=== PATIENT | male | born 1955 | race Caucasian/White ===

== ENCOUNTER 2017-01-17 10:32 | Inpatient (IN) | payer BC, OTHER ==
[~2017-01-17] VITALS: Ht 177.8 cm; Wt 82.8 kg
[2017-01-17] MEDS ORDERED: ASPI325T28 PO (10:49)
[2017-01-17] MEDS ORDERED: CLAR10CA3 PO (10:49)
[2017-01-17 11:45] LABS: INR 1.2
[2017-01-17 12:12] LABS: ALKALINE PHOSPHATASE 69 U/L (45-117); ALT/SGPT 56 U/L (12-78); AMYLASE 36 U/L (25-115); AST/SGOT 30 U/L (15-37); BILIRUBIN,DIRECT 0.5 MG/DL (0.0-0.2); BILIRUBIN,TOTAL 2.2 MG/DL (0.2-1.0); BLOOD UREA NITROGEN 12 MG/DL (7-18); CALCIUM LEVEL 8.8 MG/DL (8.8-10.2); CARBON DIOXIDE LEVEL 26 MEQ/L (21-32); CHLORIDE LEVEL 107 MEQ/L (98-107); CREATININE FOR GFR 0.99 MG/DL (0.70-1.30); GLUCOSE, FASTING 98 MG/DL (80-110); POTASSIUM SERUM 4.5 MEQ/L (3.5-5.1); TOTAL PROTEIN 7.4 GM/DL (6.4-8.2)
--- NOTE | 2017-01-17 12:23 | REP ---
CHEST, SINGLE VIEW: There is no evidence of acute infiltrate. No pleural effusion is seen. The heart is normal in size. The mediastinal silhouette is unremarkable. The visualized osseous structures are intact. IMPRESSION: No acute pulmonary disease. Signed by Mac Johnson MD 01/17/2017 05:01 P
[2017-01-17 12:46] LABS: MEAN CORPUSCULAR HEMOGLOBIN 40.6 pg (27.0-33.0); MEAN CORPUSCULAR HGB CONC 34.5 g/dl (32.0-36.5); MEAN CORPUSCULAR VOLUME 117.7 fl (80.0-96.0); PLATELET COUNT, AUTOMATED 199 k/mm3 (150-450); RED CELL DISTRIBUTION WIDTH 23.7 % (11.5-14.5); WHITE BLOOD COUNT 4.4 K/mm3 (4.0-10.0)
[2017-01-17 12:49] LABS: EOSINOPHILS 1 % (0-5); NUCLEATED RED BLOOD CELL 2 % (0-0)
[2017-01-17 12:50] LABS: ANISOCYTOSIS 3+
[2017-01-17 13:12] LABS: ANION GAP 8 MEQ/L (8-16); SODIUM LEVEL 141 MEQ/L (136-145)
[2017-01-17 13:13] LABS: ALBUMIN 4.3 GM/DL (3.2-5.2); ALBUMIN/GLOBULIN RATIO 1.39 (1.00-1.93)
[2017-01-17] MEDS ORDERED: GOLYTELY SOLN 4000 ML BTL PO ONE (14:00)
--- NOTE | 2017-01-17 14:09 | HPEPDOC ---
Medical History and Physical Date of Admission Jan 17, 2017 at 13:18 History and Physical ATTENDING: Dr. Carrillo PCP: Dr Ingram. [facility] CC: Referred to ED for symptomatic anemia HPI: 61yoM with a past medical history significant for chest discomfort who was seen at PCP office 01/12/17 for further evaluation. The pt states he had been having chest heaviness with exertion and POWELL. He was referred to [facility] in [place] for a stress study which was scheduled 01/18/17. He states that he had labs reviewed as per PCP (Hgb 7.9) and was referred to [facility] ED for further evaluation and transfusion. Denies any fevers, chills, weakness, fatigue, TOMPKINS, cough, palpitations, abdominal pain, N/V/D or changes in bowel or bladder habits. Denies melena, hematochezia. Had been having some "heartburn" and was using TUMS however Pt states has not noticed recently and he felt it was better. Upon presentation to the hospital the patient was found to have symptomatic anemia, thus the hospitalist team was consulted. PMHx: borderline HTN allergic rhinitis tobacco use Lung Nodule. CT chest 01/12/17 Maybeury benign calcified nodule RLL. PSHX: back surgery B/L CTR trigger finger release nasal surgery SOCHX: Resides in: [facility] Marital Status: Kids: 2 Employment: maintenance Tobacco use: 6 perday ETOH: 2-5 per nt Illicit Drugs: Denies Recent travel: recently went to [place] Advanced directives: none FAMHX: Mother: Pneumonia, heart disease, DM Father: spinal tumor Siblings: 1 brother stomach Ca Children: Alive, Crohn's disease Unexpected deaths due to medical reasons: None. ROS: As noted in HPI, otherwise 11pt ROS of systems reviewed and unremarkable. PE: GEN: 61yoM, appears stated age. Well-nourished, well developed. No acute distress. Alert and oriented x 3. Pleasant, interactive. HEENT: Normocephalic, atraumatic. Pupils are equal, round, and reactive to light. Extraocular movements are intact. No nystagmus appreciated. Sclera are nonicteric. Conjunctiva without injection. Nose midline. Nasal turbinates without bogginess. EACs both patent BL. No facial asymmetry. Moist mucous membranes. Dentition fair. Pharynx pink and moist. Neck supple, trachea midline. No lymphadenopathy or thyromegaly appreciated. CHEST: Regular rate and rhythm, +S1, +S2 LUNGS: Clear to auscultation bilaterally. No wheezes, rales, or rhonchi. Breathing appears symmetric and easy. Patient is speaking in full sentences. No accessory muscle use. ABD: Round, soft, non-tender, non-distended. +Bowel sounds throughout. No rebound or guarding. No costovertebral angle tenderness. EXT: Pulses 2+ bilaterally dorsalis pedis and radial. No lower extremity edema appreciated. SKIN: Pale appearing, dry, warm. Capillary refill <2sec. No rashes. NEURO: Alert and oriented x 3. Cranial nerves III-XII are intact. No focal deficits appreciated. CXR: No acute pulmonary disease EKG: SR 84 bpm, minimal ST depression Stool OB neg in ED. A&P: 61yoM with a past medical history significant for chest discomfort who was seen at PCP office 01/12/17 for further evaluation. The pt states he had been having chest heaviness with exertion and POWELL. He was referred to [facility] for a stress study which was scheduled 01/18/17. He states that he had labs reviewed as per PCP (Hgb 7.9) and was referred to [facility] ED for further evaluation and transfusion. 1. The patient will be admitted to PCU for at least [address] Carrillo's service. Pt is discussed with Dr Webster. 2. Symptomatic anemia. Consent on chart for blood products. Pt with orders to begin PRBC x 1 unit in ED. Q6 CBC. Monitor need for additional PRBC. Dr Fox consulted for UGI bleed. Scoping planned for tomorrow. IV Protonix Q12, Carafate Q6. Golytely prep ordered. 3. Chest discomfort. Pt states no discomfort currently. CIP/Trop x 3. PCU/TM. ASA on hold. 4. Allergic rhinitis. Loratadine as needed. 5. Tobacco use. Pt declines Nicoderm at this time. 6. H/O elevated BP. Pt does not take BP meds at home. Monitor. 149/73 in ED. DVT prophylaxis. SCD/TEDS The patient is a Full code Attending Note: I have independently examined this patient and all aspects of the exam and treatment decisions have been discussed. A member of the hospitalist staff will continue to follow this patient through discharge. Vital Signs Vital Signs Date Time Temp Pulse Resp B/P (MAP) Pulse Ox O2 Delivery O2 Flow Rate FiO2 01/17/17 12:17 80 99 01/17/17 12:14 149/73 (98) 01/17/17 10:34 97.9 16 Room Air Laboratory Data Labs 24H Laboratory Tests 2 01/17/17 11:15: Neutrophils 69, Lymphocytes (Manual) 25, Monocytes (Manual) 5, Eosinophils ( Manual) 1, Nucleated Red Blood Cells 2H, Platelet Estimate NORMAL, Anisocytosis 3+, Macrocytosis 3+, Prothrombin Time 15.3H, Prothromb Time International Ratio 1.20, Activated Partial Thromboplast Time 33.0, Anion Gap 8, Calcium Level 8.8, Aspartate Amino Transf (AST/SGOT) 30, Alanine Aminotransferase (ALT/SGPT) 56, Alkaline Phosphatase 69, Total Bilirubin 2.2H, Direct Bilirubin 0.5H, Total Creatine Kinase 43, Creatine Kinase MB 1.0, Creatine Kinase MB Relative Index 2.32, Troponin I < 0.02, Total Protein 7.4, Albumin 4.3, Albumin/Globulin Ratio 1.39, Amylase Level 36, Lipase 156 CBC/BMP Laboratory Tests 01/17/17 11:15 Red Blood Count 1.99 L, Mean Corpuscular Volume 117.7 H, Mean Corpuscular Hemoglobin 40.6 H, Mean Corpuscular Hemoglobin Concent 34.5, Red Cell Distribution Width 23.7 H Home Medications Scheduled Aspirin (Aspirin) 325 Mg Tab, 325 MG PO DAILY Scheduled PRN Loratadine (Claritin) 10 Mg Cap, 10 MG PO DAILY PRN for ALLERGIES Allergies Coded Allergies: No Known Drug Allergy (Verified Allergy, Unknown, 01/17/17) Debra Noriega Jan 17, 2017 14:09 MARYJO WEBSTER DO Jan 18, 2017 16:38
[2017-01-17] MEDS: PANTOPRAZOLE 40MG INJ (PROTONIX) (C9113) IV SCH (15:27)
[2017-01-17] MEDS: SUCRALFATE 1 GM TAB PO SCH ×2 (15:28→18:25)
[2017-01-17] MEDS: NICOTINE 14 MG/24 HR TRANSDERMAL TD SCH (16:51)
--- NOTE | 2017-01-17 17:56 | ECGEPIP ---
Stationary ECG Study [facility] - ED Test Date: 2017-01-17 Pat Name: LENA COFFEY Department: Room: - Gender: M Box Icer: raman : 1955 Requested By: Jarrell Gorman Order Number: [id number] Reading MD: Jarrell Gorman Measurements Intervals [place] Rate: 84 P: 69 SC: 152 QRS: 53 QRSD: 91 T: 57 QT: 376 QTc: 445 Interpretive Statements SINUS RHYTHM MINIMAL ST DEPRESSION 03/12/15 - RATE INCREASED NONSPECIFIC ST T WAVE CHANGES Electronically Signed On 01-17-2017 17:55:48 EDT by Jarrell Gorman
[2017-01-17 21:40] VITALS: BP 140/89
[2017-01-18 00:10] VITALS: BP 128/74
[2017-01-18] MEDS ORDERED: diphenhydrAMINE 25 MG CAP PO ONE (00:30)
[2017-01-18] MEDS: PANTOPRAZOLE 40MG INJ (PROTONIX) (C9113) IV SCH ×2 (01:02→13:50)
[2017-01-18] MEDS: SUCRALFATE 1 GM TAB PO SCH ×5 (01:02→23:51)
--- NOTE | 2017-01-18 04:40 | CR.PDOC ---
General Surgery Consultation Date of Consultation 01/18/17 History and Physical CONSULT REPORT FOR: Tae DO Kunal REASON FOR CONSULTATION: Anemia HISTORY OF PRESENT ILLNESS: Patient 61-year-old male who was seen by his primary care doctor complaining of intermittent chest pains was found to have severe anemia. Laboratories and subsequently sent to the emergency room and admitted to the hospital for blood transfusion and workup of his anemia. I'm being asked to see the patient to consider performing colonoscopy and upper GI endoscopy as workup of his anemia. Patient reports some intermittent low sternal and epigastric pain, some mild heartburn symptoms he has been taking Tums with adequate response off the heartburn symptoms. He drinks a few beers nightly. He denies taking NSAIDs regularly. He denies any significant ongoing weight loss. He denies noticing any melena or bloody stools. He denies any pain with defecation. He has had previous colonoscopy when he turned 50 was reported to be normal. He reports some mid sternal pain and effort. He denies any shortness of breath. PAST MEDICAL HISTORY: 1. Reviewed and recorded separately in HPI. PAST SURGICAL HISTORY: INCLUDES: 1. Reviewed and recorded separately in HPI PREVIOUS ANESTHESIA REACTIONS: None reported ALLERGIES: Please see below. FAMILY HISTORY: Reports brother with stomach cancer. A child with Crohn's disease. Denies family history for colorectal malignancy. HOME MEDICATIONS: Please see below. SOCIAL HISTORY Tobacco use: 6 perday ETOH: 2-5 per nt REVIEW OF SYSTEMS: GENERAL: Denies chills, denies weight gain, denies fever. HEENT: Denies blurred vision and double vision. Denies ear symptoms. Denies hoarseness. NECK: Denies any neck pain]. CARDIOVASCULAR: Reports midsternal chest pain and effort. MUSCULOSKELETAL: Denies arthralgias, back pain and thrombophlebitis. SKIN: Denies rash. NEUROLOGIC: Denies headache, stroke and transient ischemic attack. PSYCHIATRIC: Denies anxiety and depression. ENDOCRINE: Denies thyroid disease. HEMATOLOGY/ONCOLOGY: Not on any anticoagulant. HEART: Reports chest pain. PULMONARY: Denies chronic cough, dyspnea and wheezing had an incidental finding of right lower lung nodule. GASTROINTESTINAL: See HPI. GENITOURINARY: Denies dysuria, frequency, hematuria and nocturia. ENDOCRINE: Denies polydipsia, polyphagia, polyuria, heat or cold intolerance. INFECTIOUS: Denies any recent upper respiratory tract infection, UTI, need for use of antibiotics. NUTRITION: Reports good appetite. PHYSICAL EXAMINATION: VITALS SIGNS: Please see below. GENERAL APPEARANCE:Patient seen, pacing the room. Comfortable, in no acute distress. SKIN: Warm and moist. HEENT: Normocephalic, atraumatic. Mildly pale palpebral conjunctiva, anicteric sclerae. Lips and mucosa appear moist. NECK: Supple, no thyromegaly. No obvious jugular venous distention. LUNGS: Clear to auscultation bilaterally. No wheezing appreciated. HEART: No chest wall abnormalities. Regular rate and rhythm with no murmurs appreciated. ABDOMEN: Abdomen is flat, soft, and nondistended. No hepatosplenomegaly. No umbilical or groin herniations, nondistended. No noticeable rebound or guarding. No grimacing with palpation. No rebound tenderness. No masses appreciated. EXTREMITIES: Extremities have no deformities. No edema identified ANCILLARIES: . LABORATORY DATA: Please see below. IMAGING STUDIES: . IMPRESSION AND PLAN: Anemia Patient receiving blood transfusion at this time. We will schedule him for upper GI endoscopy and colonoscopy tomorrow. He is already taking bowel prep probably is a bit too early. We will supplemented to separate those in the morning. Details of procedure risks and benefits of the discussed with the patient and consent obtained from the patient. Vital Signs Vital Signs Date Time Temp Pulse Resp B/P (MAP) Pulse Ox O2 Delivery O2 Flow Rate FiO2 01/18/17 00:10 98.2 74 18 128/74 (92) 98 Room Air I&Os I&O- Last 24 Hours up to 6 AM 01/18/17 06:00 Intake Total 2800 ml Output Total 850 ml Balance 1950 ml Laboratory Data Labs 24H Laboratory Tests 2 01/17/17 11:15: Neutrophils 69, Lymphocytes (Manual) 25, Monocytes (Manual) 5, Eosinophils ( Manual) 1, Nucleated Red Blood Cells 2H, Platelet Estimate NORMAL, Anisocytosis 3+, Macrocytosis 3+, Prothrombin Time 15.3H, Prothromb Time International Ratio 1.20, Activated Partial Thromboplast Time 33.0, Anion Gap 8, Calcium Level 8.8, Aspartate Amino Transf (AST/SGOT) 30, Alanine Aminotransferase (ALT/SGPT) 56, Alkaline Phosphatase 69, Total Bilirubin 2.2H, Direct Bilirubin 0.5H, Total Creatine Kinase 43, Creatine Kinase MB 1.0, Creatine Kinase MB Relative Index 2.32, Troponin I < 0.02, Total Protein 7.4, Albumin 4.3, Albumin/Globulin Ratio 1.39, Amylase Level 36, Lipase 156 01/17/17 18:50: Total Creatine Kinase 32L, Creatine Kinase MB 1.0, Creatine Kinase MB Relative Index 3.12, Troponin I < 0.02 01/18/17 02:10: Total Creatine Kinase 35L, Creatine Kinase MB 1.0, Creatine Kinase MB Relative Index 2.85, Troponin I 0.03# CBC/BMP Laboratory Tests 01/17/17 11:15 Red Blood Count 1.99 L, Mean Corpuscular Volume 117.7 H, Mean Corpuscular Hemoglobin 40.6 H, Mean Corpuscular Hemoglobin Concent 34.5, Red Cell Distribution Width 23.7 H 01/17/17 18:50 01/18/17 02:10 Home Medications Scheduled Aspirin (Aspirin) 325 Mg Tab, 325 MG PO DAILY, (Reported) Scheduled PRN Loratadine (Claritin) 10 Mg Cap, 10 MG PO DAILY PRN for ALLERGIES, (Reported) Allergies Coded Allergies: No Known Drug Allergy (Verified Allergy, Unknown, 01/17/17) AYESHA KELSEY MD Jan 18, 2017 04:40
[2017-01-18 05:49] VITALS: BP 144/70
[2017-01-18] MEDS ORDERED: GOLYTELY SOLN 4000 ML BTL PO ONE (06:00)
[2017-01-18 08:00] VITALS: BP 163/72
[2017-01-18 08:03] LABS: ADD MORPHOLOGY? YES; BASO # 0.1 K/mm3 (0.0-0.2); BASO % 1.7 % (0.0-1.0); EOS # 0.1 K/mm3 (0.0-0.50); EOS % 3.7 % (0.0-3.0); LARGE UNSTAINED CELL # 0.1 K/mm3 (0.0-0.4); LARGE UNSTAINED CELL % 1.7 % (0.0-4.0); LYMPH # 1.2 K/mm3 (1.5-4.5); LYMPH % 33.7 % (24.0-44.0); MEAN CORPUSCULAR HEMOGLOBIN 38.1 pg (27.0-33.0); MEAN CORPUSCULAR HGB CONC 34.1 g/dl (32.0-36.5); MONO # 0.2 K/mm3 (0.0-0.8); MONO % 4.8 % (0.0-5.0); NEUTROPHILS # 1.9 K/mm3 (1.8-7.7); NEUTROPHILS % 54.3 % (36.0-66.0); PLATELET COUNT, AUTOMATED 193 k/mm3 (150-450); RED CELL DISTRIBUTION WIDTH 24.3 % (11.5-14.5); WHITE BLOOD COUNT 3.4 K/mm3 (4.0-10.0)
[2017-01-18 08:05] LABS: MEAN CORPUSCULAR VOLUME 111.6 fl (80.0-96.0)
[2017-01-18 08:12] LABS: ALBUMIN 4.4 GM/DL (3.2-5.2); ALBUMIN/GLOBULIN RATIO 1.38 (1.00-1.93); ALKALINE PHOSPHATASE 64 U/L (45-117); ALT/SGPT 62 U/L (12-78); ANION GAP 7 MEQ/L (8-16); AST/SGOT 39 U/L (15-37); BILIRUBIN,TOTAL 4.1 MG/DL (0.2-1.0); BLOOD UREA NITROGEN 12 MG/DL (7-18); CALCIUM LEVEL 8.5 MG/DL (8.8-10.2); CARBON DIOXIDE LEVEL 28 MEQ/L (21-32); CHLORIDE LEVEL 104 MEQ/L (98-107); CREATININE FOR GFR 0.98 MG/DL (0.70-1.30); GLOMERULAR FILTRATION RATE > 60.0 (>49); GLUCOSE, FASTING 95 MG/DL (80-110); SODIUM LEVEL 139 MEQ/L (136-145); TOTAL PROTEIN 7.6 GM/DL (6.4-8.2)
[2017-01-18] MEDS: NICOTINE 14 MG/24 HR TRANSDERMAL TD SCH (09:51)
[2017-01-18] MEDS ORDERED: PROPOFOL 500 MG/50 ML VIAL As Ordered ONE (11:45)
[2017-01-18] MEDS ORDERED: PROPOFOL 200 MG/20 ML VIAL As Ordered ONE (11:45)
[2017-01-18 12:00] VITALS: BP 180/81
[2017-01-18] MEDS ORDERED: LIDOCAINE 2% INJ 100 MG/5 ML SDV (FOR ANES.) As Ordered ONE (12:36)
[2017-01-18] MEDS ORDERED: PHENYLephrine HCL 500 MCG/5 ML (100MCG/ML) SYRINGE (J2370) As Ordered ONE (12:36)
[2017-01-18] MEDS ORDERED: ePHEDrine SULFATE 25 MG/5 ML(5MG/ML) SYRINGE As Ordered ONE (12:40)
--- NOTE | 2017-01-18 12:50 | IPNPDOC ---
Text Note Date of Service The patient was seen on 01/18/17. NOTE Subjective: Patient is a 61 year old male with a PMHx of HTN, Allergic rhinitis, Tobacco abuse, and a Lung nodule (CT chest 01/12/17, followed up in [place] as a benign calcified nodule RLL) who presented to the ER with chest discomfort, shortness of breath on exertion. He was suppose to go for a stress test, but was found to be anemic and sent to the ER. Upon evaluation in the ER patient noted that he had epigastric discomfort and "heartburn" like symptoms. Patient was admitted for symptomatic anemia. Patient was seen and examined at the bedside. Currently he denies any blood in his stool or change in the color of his stool. Objective: Vitals (See below) General: Lying in bed, no acute distress, comfortable, AAOx3 HEENT: NC, AT CVS: RRR, +S1S2 Lungs: Fair air entry b/l, -w/r/r Abdomen: Soft, ND, NT, +BSx4 Extremities: +PPx4, - Edema, - Calf tenderness Assessment and plan: 1. Symptomatic anemia - likely 2/2 upper GI bleed - presented with chest discomfort, SOB with exertion, noted to have epigastric pain and "heartburn" symptoms - physical unrevealing - Hg upon admission was 8.1 - s/p 1 unit PRBC - Hg stable since then - c/w Protonix 40mg IV q12H and Carafate ACHS - Will go for colonoscopy and EGD this morning - Dr. Kelly on consult 2. Chest pain - possibly 2/2 anemia - EKG does not reveal any ischemic changes - Troponin has remained at 0.07; no elevation noted - will follow up outpatient for scheduled stress test 3. Allergic rhinitis - c/w Loratadine 4. Continuous nicotine dependence - refused nicotine patch 5. Borderline HTN - BP this morning in SBPs of 160s - will hold off on medications at this point - Will start if still elevated 6. GI prophylaxis - c/w Protonix 7. DVT prophylaxis - c/w SCDs VS,Fishbone, I+O VS, Fishbone, I+O Laboratory Tests 01/17/17 18:50 01/18/17 02:10 01/18/17 07:33 Red Blood Count 2.59 L, Mean Corpuscular Volume 111.6 #H, Mean Corpuscular Hemoglobin 38.1 H, Mean Corpuscular Hemoglobin Concent 34.1, Red Cell Distribution Width 24.3 H, Neutrophils (%) (Auto) 54.3, Lymphocytes (%) (Auto) 33.7, Monocytes (%) (Auto) 4.8, Eosinophils (%) (Auto) 3.7 H, Basophils (%) ( Auto) 1.7 H, Neutrophils # (Auto) 1.9, Lymphocytes # (Auto) 1.2 L, Monocytes # ( Auto) 0.2, Eosinophils # (Auto) 0.1, Basophils # (Auto) 0.1, Calcium Level 8.5 L , Aspartate Amino Transf (AST/SGOT) 39 H, Alanine Aminotransferase (ALT/SGPT) 62 , Alkaline Phosphatase 64, Total Bilirubin 4.1 #H, Total Protein 7.6, Albumin 4.4 Vital Signs Date Time Temp Pulse Resp B/P (MAP) Pulse Ox O2 Delivery O2 Flow Rate FiO2 01/18/17 08:00 97.4 84 18 163/72 (102) 96 Room Air I&O- Last 24 Hours up to 6 AM 01/18/17 06:00 Intake Total 3100 ml Output Total 1200 ml Balance 1900 ml RAOUL MCFARLAND MD Jan 18, 2017 12:50
--- NOTE | 2017-01-18 13:06 | ROOR ---
Patient Name: Duc Barillas Procedure Date: 01/18/2017 12:28 PM Date of : 1955 Age: 61 Room: [facility] Gender: Male Note Status: Finalized Procedure: Upper GI endoscopy Indications: Acute post hemorrhagic anemia Providers: Favian Kelly MD Referring MD: Jakob Ingram MD Requesting Provider: Medicines: Monitored Anesthesia Care Complications: No immediate complications. Procedure: Pre-Anesthesia Assessment: - Prior to the procedure, a History and Physical was performed, and patient medications and allergies were reviewed. The patient is competent. The risks and benefits of the procedure and the sedation options and risks were discussed with the patient. All questions were answered and informed consent was obtained. Patient identification and proposed procedure were verified by the physician, the nurse and the anesthesiologist in the procedure room. Mental Status Examination: alert and oriented. Airway Examination: normal oropharyngeal airway and neck mobility. Respiratory Examination: clear to auscultation. CV Examination: normal. Prophylactic Antibiotics: The patient does not require prophylactic antibiotics. Prior Anticoagulants: The patient has taken aspirin, last dose was 1 day prior to procedure. ASA Grade Assessment: II - A patient with mild systemic disease. After reviewing the risks and benefits, the patient was deemed in satisfactory condition to undergo the procedure. The anesthesia plan was to use monitored anesthesia care (MAC). Immediately prior to administration of medications, the patient was re-assessed for adequacy to receive sedatives. The heart rate, respiratory rate, oxygen saturations, blood pressure, adequacy of pulmonary ventilation, and response to care were monitored throughout the procedure. The physical status of the patient was re-assessed after the procedure. The Endoscope was introduced through the mouth, and advanced to the second part of duodenum. The upper GI endoscopy was accomplished without difficulty. The patient tolerated the procedure well. Findings: The examined esophagus was normal. Hematin (altered blood/vzcgnv-gfvdpk-sswg material) was found in the gastric fundus. Scattered mild inflammation with hemorrhage characterized by congestion (edema), erosions, erythema, linear erosions and shallow ulcerations was found in the gastric antrum. Biopsies were taken with a cold forceps for Helicobacter pylori testing. Estimated blood loss was minimal. Localized nodular mucosa was found in the gastric fundus. Biopsies were taken with a cold forceps for histology. Estimated blood loss was minimal. Two oozing linear duodenal ulcers with pigmented material were found in the duodenal bulb. The largest lesion was 2 mm in largest dimension. Estimated blood loss: none. Impression: - Normal esophagus. - Hematin (altered blood/wuotkg-twdoil-dpsu material) in the gastric fundus. - Chronic gastritis with hemorrhage. Biopsied. - Nodular mucosa in the gastric fundus. Biopsied. - Multiple oozing duodenal ulcers with pigmented material. Recommendation: - [facility] the [facility]. - Resume regular diet. - Use Protonix (pantoprazole) 40 mg PO BID for 6 months. - Repeat upper endoscopy in 3 months to check healing. - Return to my office in 2 months. Favian Kelly MD Favian Kelly MD 01/18/2017 1:06:09 PM This report has been signed electronically. Number of Addenda: 0 Note Initiated On: 01/18/2017 12:28 PM Estimated Blood Loss: Estimated blood loss was minimal.
--- NOTE | 2017-01-18 13:09 | ROOR ---
Patient Name: Duc Barillas Procedure Date: 01/18/2017 12:27 PM Date of : 1955 Age: 61 Room: [facility] Gender: Male Note Status: Finalized Procedure: Colonoscopy Indications: Acute post hemorrhagic anemia Providers: Favian Kelly MD Referring MD: Jakob Ingram MD Requesting Provider: Medicines: Monitored Anesthesia Care Complications: No immediate complications. Estimated blood loss: Minimal. Procedure: Pre-Anesthesia Assessment: - Prior to the procedure, a History and Physical was performed, and patient medications and allergies were reviewed. The patient is competent. The risks and benefits of the procedure and the sedation options and risks were discussed with the patient. All questions were answered and informed consent was obtained. Patient identification and proposed procedure were verified by the physician, the nurse and the anesthesiologist in the procedure room. Mental Status Examination: alert and oriented. Airway Examination: normal oropharyngeal airway and neck mobility. Respiratory Examination: clear to auscultation. CV Examination: normal. ASA Grade Assessment: II - A patient with mild systemic disease. After reviewing the risks and benefits, the patient was deemed in satisfactory condition to undergo the procedure. The anesthesia plan was to use monitored anesthesia care (MAC). Immediately prior to administration of medications, the patient was re-assessed for adequacy to receive sedatives. The heart rate, respiratory rate, oxygen saturations, blood pressure, adequacy of pulmonary ventilation, and response to care were monitored throughout the procedure. The physical status of the patient was re-assessed after the procedure. The Colonoscope was introduced through the anus and advanced to the cecum, identified by appendiceal orifice and ileocecal valve. The colonoscopy was somewhat difficult due to a tortuous colon. The patient tolerated the procedure well. Findings: The perianal exam findings include non-thrombosed external hemorrhoids. A small polyp was found in the ascending colon. The polyp was sessile. The polyp was removed with a jumbo cold forceps. Resection and retrieval were complete. Estimated blood loss was minimal. The entire examined colon appeared normal on direct and retroflexion views. Impression: - Non-thrombosed external hemorrhoids found on perianal exam. - One small polyp in the ascending colon, removed with a jumbo cold forceps. Resected and retrieved. - The entire examined colon is normal on direct and retroflexion views. Recommendation: - Admit the [facility] care. Favian Kelly MD Favian Kelly MD 01/18/2017 1:08:46 PM This report has been signed electronically. Number of Addenda: 0 Note Initiated On: 01/18/2017 12:27 PM Estimated Blood Loss: Estimated blood loss was minimal.
[2017-01-18 15:20] LABS: ANISOCYTOSIS 3+
[2017-01-18 16:00] VITALS: BP 126/67
[2017-01-18] MEDS ORDERED: SLF 3 ML SYR IV PRN (16:00)
[2017-01-18 19:58] VITALS: BP 126/67
[2017-01-18 21:40] LABS: MEAN CORPUSCULAR HEMOGLOBIN 37.4 pg (27.0-33.0); MEAN CORPUSCULAR HGB CONC 34.6 g/dl (32.0-36.5); MEAN CORPUSCULAR VOLUME 108.1 fl (80.0-96.0); RED CELL DISTRIBUTION WIDTH 25.2 % (11.5-14.5); WHITE BLOOD COUNT 4.5 K/mm3 (4.0-10.0)
[2017-01-18] MEDS: SLF 3 ML SYR IV SCH (22:00)
[2017-01-19] VITALS: BP 117/64
[2017-01-19 04:00] VITALS: BP 126/66
[2017-01-19 04:46] LABS: MEAN CORPUSCULAR HEMOGLOBIN 38.5 pg (27.0-33.0); MEAN CORPUSCULAR HGB CONC 35.2 g/dl (32.0-36.5); MEAN CORPUSCULAR VOLUME 109.3 fl (80.0-96.0); RED CELL DISTRIBUTION WIDTH 25.2 % (11.5-14.5); WHITE BLOOD COUNT 3.6 K/mm3 (4.0-10.0)
[2017-01-19 04:58] LABS: ALBUMIN 3.3 GM/DL (3.2-5.2); ALBUMIN/GLOBULIN RATIO 1.14 (1.00-1.93); ALKALINE PHOSPHATASE 46 U/L (45-117); ALT/SGPT 46 U/L (12-78); ANION GAP 4 MEQ/L (8-16); AST/SGOT 26 U/L (15-37); BILIRUBIN,TOTAL 2.2 MG/DL (0.2-1.0); BLOOD UREA NITROGEN 11 MG/DL (7-18); CALCIUM LEVEL 7.9 MG/DL (8.8-10.2); CARBON DIOXIDE LEVEL 29 MEQ/L (21-32); CHLORIDE LEVEL 108 MEQ/L (98-107); CREATININE FOR GFR 0.83 MG/DL (0.70-1.30); GLOMERULAR FILTRATION RATE > 60.0 (>49); GLUCOSE, FASTING 105 MG/DL (80-110); POTASSIUM SERUM 4.5 MEQ/L (3.5-5.1); SODIUM LEVEL 141 MEQ/L (136-145); TOTAL PROTEIN 6.2 GM/DL (6.4-8.2)
[2017-01-19] MEDS: SUCRALFATE 1 GM TAB PO SCH ×2 (06:34→12:01)
[2017-01-19] MEDS: SLF 3 ML SYR IV SCH (06:34)
[2017-01-19 08:00] VITALS: BP 126/67
[2017-01-19] MEDS ORDERED: PANTOPRAZOLE 40MG TAB (PROTONIX) PO SCH (09:00)
[2017-01-19] MEDS: NICOTINE 14 MG/24 HR TRANSDERMAL TD SCH (09:23)
[2017-01-19] MEDS ORDERED: PANT40TA2 PO (09:38)
[2017-01-19] MEDS ORDERED: NICO14PA TD (11:22)
[2017-01-19] MEDS ORDERED: SUCR1TA PO (11:22)
--- NOTE | 2017-01-19 15:19 | DSES ---
DATE OF ADMISSION: 01/17/2017 DATE OF DISCHARGE: 01/19/2017 ATTENDING PHYSICIAN: Dr. Alondra Carrillo PRIMARY CARE PROVIDER: Dr. Jakob Ingram REFERRING PHYSICIAN: None. CONSULTING PHYSICIAN: Dr. Kelly. CONDITION ON DISCHARGE: Stable. FINAL DIAGNOSES: Symptomatic anemia. PROCEDURES: Esophagogastroduodenoscopy (EGD) and colonoscopy done on 01/18/2017. HISTORY OF PRESENT ILLNESS: The patient is a 61-year-old male with a past medical history of hypertension, allergic rhinitis, tobacco abuse, lung nodes based on CT scan done in December 2016, followed up [facility] as a benign calcified nodule, who presented to the emergency room with chest discomfort, shortness of breath on exertion. He was supposed to go for a stress test but was found to have anemia and was sent to the emergency room for further evaluation. Upon arrival in the emergency room, he was noted to have epigastric discomfort and he is admitted for symptomatic anemia with suspected upper gastrointestinal source. HOSPITAL COURSE: 1. Symptomatic anemia, likely secondary to upper gastrointestinal bleeding, presented with chest discomfort, shortness of breath with exertion and noted to have epigastric pain and heartburn symptoms. Hemoglobin upon admission was 8.1. The patient had received 2 units of packed red blood cell transfusion throughout the [id number] course. Hemoglobin has remained stable since that point. The patient had a colonoscopy and endoscopy. Colonoscopy had revealed a polyp in the descending colon and external hemorrhoid. EGD revealed that he had chronic gastritis and oozing within the duodenum but no visible bleeding. Recommendations from surgery were Protonix twice a day for the next 6 months. He is advised to followup with Dr. Kelly as an outpatient for repeat endoscopy. 2. Chest pain, probably secondary to anemia. EKG did not reveal any ischemic changes. Troponin has remained stable at 0.07 and has not changed. He will followup as an outpatient for scheduled stress test. 3. Allergic rhinitis. Continue with loratadine. 4. Continuous nicotine dependence, refuses nicotine patch. However, he has been given nicotine patch upon discharge. 5. Borderline hypertension. Blood pressure this morning has been systolic blood pressure of 160s. We will continue to hold off medication and we will prescribe if it remains elevated. 6. Gastrointestinal prophylaxis. Continue with Protonix. 7. Deep vein thrombosis (DVT) prophylaxis. Continue with sequential compression device (SCD). DISCHARGE MEDICATIONS: The patient will be disharged home on the following medication list: - nicotine one patch of 14 mg transdermally daily - Protonix 40 mg by mouth twice a day - sucralfate 1 gram by mouth before food and nightly - aspirin 325 mg by mouth daily - loratadine 10 mg by mouth daily DISCHARGE INSTRUCTIONS: The patient has been advised to followup with his primary care provider and cardiology and surgery within the next 7 days. He has been advised to remain compliant with treatment plan and medications and return to the emergency room if he experiences any problems. Time spent on discharge: 35 minutes.
== END 2017-01-19 13:26 | disposition home or self-care (01) | DRG 241 ==
LOC: M ED 11:25 → M ED INP 13:18 → M PCU 21:37
PROVIDERS: ADMIT Hospitalist; ATTEND Internal Medicine
PROC: 30233N1 Transfusion of Nonautologous Red Blood Cells into Peripheral Vein, Percutaneous Approach (ICD-10-PCS; 2017-01-17)
PROC: 0DB78ZX Excision of Stomach, Pylorus, Via Natural or Artificial Opening Endoscopic, Diagnostic (ICD-10-PCS; 2017-01-18)
PROC: 0DBK8ZZ Excision of Ascending Colon, Via Natural or Artificial Opening Endoscopic (ICD-10-PCS; 2017-01-18)
PROC: 0DB68ZX Excision of Stomach, Via Natural or Artificial Opening Endoscopic, Diagnostic (ICD-10-PCS; principal; 2017-01-18 13:00)
DX: K29.51 Unspecified chronic gastritis with bleeding (principal); D62 Acute posthemorrhagic anemia; F17.210 Nicotine dependence, cigarettes, uncomplicated; R03.0 Elevated blood-pressure reading, without diagnosis of hypertension; J30.9 Allergic rhinitis, unspecified; R91.1 Solitary pulmonary nodule; Z79.899 Other long term (current) drug therapy; Z82.49 Family history of ischemic heart disease and other diseases of the circulatory system; Z83.3 Family history of diabetes mellitus; Z80.0 Family history of malignant neoplasm of digestive organs; Z83.79 Family history of other diseases of the digestive system; K64.4 Residual hemorrhoidal skin tags; K26.4 Chronic or unspecified duodenal ulcer with hemorrhage

== ENCOUNTER 2017-04-26 07:03 | Outpatient (CLI) | payer BC, OTHER ==
[~2017-04-26] VITALS: Ht 177.8 cm; Wt 88.5 kg
[~2017-04-26 07:03] MED LIST: ASPI325T28 PO; CLAR10CA3 PO; NICO14PA TD; PANT40TA2 PO; SUCR1TA PO
[2017-04-26] MEDS ORDERED: NS 1,000 ML IV ONE (07:15)
--- NOTE | 2017-04-26 08:24 | ROOR ---
Patient Name: Duc Barillas Procedure Date: 04/26/2017 8:00 AM Date of : 1955 Age: 61 Room: [facility] Gender: Male Note Status: Finalized Procedure: Upper GI endoscopy Indications: Follow-up of peptic ulcer Providers: Favian Kelly MD Referring MD: Jakob Ingram MD Requesting Provider: Medicines: Monitored Anesthesia Care Complications: No immediate complications. Procedure: Pre-Anesthesia Assessment: - Prior to the procedure, a History and Physical was performed, and patient medications and allergies were reviewed. The patient is competent. The risks and benefits of the procedure and the sedation options and risks were discussed with the patient. All questions were answered and informed consent was obtained. Patient identification and proposed procedure were verified by the physician, the nurse and the anesthesiologist in the endoscopy suite. Mental Status Examination: alert and oriented. Airway Examination: normal oropharyngeal airway and neck mobility. Respiratory Examination: clear to auscultation. CV Examination: normal. Prophylactic Antibiotics: The patient does not require prophylactic antibiotics. Prior Anticoagulants: The patient has taken no previous anticoagulant or antiplatelet agents. ASA Grade Assessment: II - A patient with mild systemic disease. After reviewing the risks and benefits, the patient was deemed in satisfactory condition to undergo the procedure. The anesthesia plan was to use monitored anesthesia care (MAC). Immediately prior to administration of medications, the patient was re-assessed for adequacy to receive sedatives. The heart rate, respiratory rate, oxygen saturations, blood pressure, adequacy of pulmonary ventilation, and response to care were monitored throughout the procedure. The physical status of the patient was re-assessed after the procedure. The Endoscope was introduced through the mouth, and advanced to the third part of duodenum. The upper GI endoscopy was accomplished without difficulty. Findings: The examined esophagus was normal. Estimated blood loss: none. The Z-line was regular and was found 42 cm from the incisors. Patchy atrophic mucosa was found in the gastric antrum. Impression: - Normal esophagus. - Z-line regular, 42 cm from the incisors. - Gastric mucosal atrophy. - Normal third portion of the duodenum. Biopsied. Recommendation: - Use Protonix (pantoprazole) 40 mg PO daily today. Favian Kelly MD Favian Kelly MD 04/26/2017 8:24:17 AM This report has been signed electronically. Number of Addenda: 0 Note Initiated On: 04/26/2017 8:00 AM Estimated Blood Loss: Estimated blood loss was minimal.
[2017-04-26 08:40] VITALS: BP 122/69
== END 2017-04-26 08:50 | disposition home or self-care (01) ==
LOC: M OPP 07:03
PROVIDERS: ATTEND Surgery
DX: K26.9 Duodenal ulcer, unspecified as acute or chronic, without hemorrhage or perforation (principal); K31.89 Other diseases of stomach and duodenum; D64.9 Anemia, unspecified; F17.200 Nicotine dependence, unspecified, uncomplicated; Z79.82 Long term (current) use of aspirin; Z79.899 Other long term (current) drug therapy; Z80.0 Family history of malignant neoplasm of digestive organs

== ENCOUNTER 2017-09-19 15:52 | Inpatient (IN) | payer BC, OTHER ==
[2017-09-19 17:47] LABS: BASO % 0.6 % (0.0-1.0); EOS # 0.3 10^3/uL (0.0-0.50); HEMATOCRIT 21.3 % (42.0-52.0); IMMATURE GRANULOCYTE % 3.7 % (0-3.0); LYMPH # 1.8 10^3/uL (1.5-4.5); LYMPH % 28.5 % (24.0-44.0); MEAN CORPUSCULAR HEMOGLOBIN 34.9 pg (27.0-33.0); MEAN CORPUSCULAR HGB CONC 31.9 g/dl (32.0-36.5); MEAN CORPUSCULAR VOLUME 109.2 fl (80.0-96.0); MONO # 0.4 10^3/uL (0.0-0.8); NEUTROPHILS # 3.6 10^3/uL (1.8-7.7); NEUTROPHILS % 57.2 % (36.0-66.0); PLATELET COUNT, AUTOMATED 201 10^3/uL (150-450); RED BLOOD COUNT 1.95 10^6/uL (4.30-6.10); RED CELL DISTRIBUTION WIDTH 26.5 % (11.5-14.5); WHITE BLOOD COUNT 6.3 10^3/uL (4.0-10.0)
[2017-09-19 17:50] LABS: HEMOGLOBIN 6.8 g/dl (14.0-18.0)
[2017-09-19] MEDS: NS 1,000 ML IV ×2 (18:08→23:34)
[2017-09-19 18:09] LABS: ALBUMIN 3.8 GM/DL (3.2-5.2); ALBUMIN/GLOBULIN RATIO 0.78 (1.00-1.93); ALKALINE PHOSPHATASE 71 U/L (45-117); ALT/SGPT 75 U/L (12-78); ANION GAP 8 MEQ/L (8-16); AST/SGOT 50 U/L (7-37); BILIRUBIN,TOTAL 1.5 MG/DL (0.2-1.0); BLOOD UREA NITROGEN 15 MG/DL (7-18); CALCIUM LEVEL 8.6 MG/DL (8.8-10.2); CARBON DIOXIDE LEVEL 25 MEQ/L (21-32); CHLORIDE LEVEL 106 MEQ/L (98-107); CREATININE FOR GFR 0.91 MG/DL (0.70-1.30); GLOMERULAR FILTRATION RATE > 60.0 (>49); GLUCOSE, FASTING 102 MG/DL (70-100); IRON (FE) 102 UG/DL (65-175); PERCENT SATURATION 28.3 % (19.7-50.0); POTASSIUM SERUM 3.8 MEQ/L (3.5-5.1); SODIUM LEVEL 139 MEQ/L (136-145); TOTAL IRON BINDING CAPACITY 360 UG/DL (250-450); TOTAL PROTEIN 8.7 GM/DL (6.4-8.2)
[2017-09-19 18:40] LABS: VITAMIN B12 LEVEL 974 PG/ML (247-911)
[2017-09-19] MEDS ORDERED: PANTOPRAZOLE 40MG INJ (PROTONIX) (C9113) IV (19:00)
[2017-09-19] MEDS: PANTOPRAZOLE 40MG INJ (PROTONIX) (C9113) IV (19:13)
[2017-09-19] MEDS ORDERED: ONDANSETRON 4 MG TAB (S0181) PO (21:45)
[2017-09-19 22:23] LABS: CPK CREATINE PHOSPHOKINASE 46 U/L (39-308); MB/CK RELATIVE INDEX 2.17 (< OR =4); TROPONIN I < 0.02 NG/ML (< 0.10)
[2017-09-19] MEDS ORDERED: LORATADINE 10 MG TAB PO (22:30)
[2017-09-19 23:07] LABS: RETIC HEMOGLOBIN EQUIVALENT 26.8 pg (24-36); RETICULOCYTE # 161.9 10^9/L (17-77); RETICULOCYTE % 8.3 % (0.5-1.5)
[2017-09-19 23:09] LABS: POSITIVE MORPH POS FLAG
[2017-09-19 23:11] LABS: INR 0.99; PROTHROMBIN TIME 13.2 SECONDS (12.4-14.5)
[2017-09-19 23:26] LABS: FERRITIN 2400 NG/ML (26-388)
[2017-09-19 23:33] LABS: ETHYL ALCOHOL (ETHANOL) < 0.003 % (0.000-0.010)
[2017-09-20 02:06] LABS: IMMEDIATE SPIN CROSSMATCH 1 2
[2017-09-20 02:17] LABS: CPK CREATINE PHOSPHOKINASE 29 U/L (39-308); TROPONIN I 0.02 NG/ML (< 0.10)
[2017-09-20 02:18] LABS: MB/CK RELATIVE INDEX 3.44 (< OR =4)
[2017-09-20] MEDS: NS 1,000 ML IV (05:49)
[2017-09-20 07:20] LABS: HEMATOCRIT 23.4 % (42.0-52.0); HEMOGLOBIN 7.6 g/dl (14.0-18.0); MEAN CORPUSCULAR HGB CONC 32.5 g/dl (32.0-36.5); MEAN CORPUSCULAR VOLUME 101.7 fl (80.0-96.0); PLATELET COUNT, AUTOMATED 173 10^3/uL (150-450); RED CELL DISTRIBUTION WIDTH 28.1 % (11.5-14.5); WHITE BLOOD COUNT 5.1 10^3/uL (4.0-10.0)
[2017-09-20 07:46] LABS: ANION GAP 5 MEQ/L (8-16); BLOOD UREA NITROGEN 13 MG/DL (7-18); CALCIUM LEVEL 8.1 MG/DL (8.8-10.2); CARBON DIOXIDE LEVEL 28 MEQ/L (21-32); CHLORIDE LEVEL 111 MEQ/L (98-107); CPK CREATINE PHOSPHOKINASE 26 U/L (39-308); CREATININE FOR GFR 0.89 MG/DL (0.70-1.30); GLOMERULAR FILTRATION RATE > 60.0 (>49); GLUCOSE, FASTING 92 MG/DL (70-100); MB/CK RELATIVE INDEX 3.84 (< OR =4); SODIUM LEVEL 144 MEQ/L (136-145); TROPONIN I 0.02 NG/ML (< 0.10)
[2017-09-20] MEDS: SUCRALFATE 1 GM TAB PO ×2 (08:52→11:57)
[2017-09-20] MEDS: PANTOPRAZOLE 40MG INJ (PROTONIX) (C9113) IV ×2 (08:52→20:39)
[2017-09-20 09:39] LABS: FOLATE 9.6 NG/ML (>5.4)
[2017-09-20 11:10] LABS: CPK CREATINE PHOSPHOKINASE 34 U/L (39-308); TROPONIN I 0.02 NG/ML (< 0.10)
[2017-09-20 11:11] LABS: MB/CK RELATIVE INDEX 2.94 (< OR =4)
[2017-09-20 12:40] LABS: HEMOGLOBIN 7.7 g/dl (14.0-18.0); MEAN CORPUSCULAR HEMOGLOBIN 32.9 pg (27.0-33.0); MEAN CORPUSCULAR HGB CONC 32.1 g/dl (32.0-36.5); MEAN CORPUSCULAR VOLUME 102.6 fl (80.0-96.0); PLATELET COUNT, AUTOMATED 177 10^3/uL (150-450); RED BLOOD COUNT 2.34 10^6/uL (4.30-6.10); RED CELL DISTRIBUTION WIDTH 27.9 % (11.5-14.5); WHITE BLOOD COUNT 5.2 10^3/uL (4.0-10.0)
[2017-09-20] MEDS: SUCRALFATE SUSP 1GM/10ML UD PO ×2 (17:37→23:36)
[2017-09-20 18:01] LABS: HEMATOCRIT 24.1 % (42.0-52.0); HEMOGLOBIN 7.8 g/dl (14.0-18.0); MEAN CORPUSCULAR HEMOGLOBIN 33.1 pg (27.0-33.0); MEAN CORPUSCULAR HGB CONC 32.4 g/dl (32.0-36.5); MEAN CORPUSCULAR VOLUME 102.1 fl (80.0-96.0); PLATELET COUNT, AUTOMATED 189 10^3/uL (150-450); RED BLOOD COUNT 2.36 10^6/uL (4.30-6.10); RED CELL DISTRIBUTION WIDTH 28.2 % (11.5-14.5); WHITE BLOOD COUNT 5.2 10^3/uL (4.0-10.0)
[2017-09-20 18:31] LABS: CPK CREATINE PHOSPHOKINASE 34 U/L (39-308); MB/CK RELATIVE INDEX 2.94 (< OR =4); TROPONIN I 0.02 NG/ML (< 0.10)
[2017-09-21] MEDS ORDERED: SLF 3 ML SYR IV (00:15)
[2017-09-21 00:18] LABS: HEMATOCRIT 24.6 % (42.0-52.0); HEMOGLOBIN 7.9 g/dl (14.0-18.0); MEAN CORPUSCULAR HEMOGLOBIN 32.9 pg (27.0-33.0); MEAN CORPUSCULAR HGB CONC 32.1 g/dl (32.0-36.5); MEAN CORPUSCULAR VOLUME 102.5 fl (80.0-96.0); PLATELET COUNT, AUTOMATED 180 10^3/uL (150-450); RED CELL DISTRIBUTION WIDTH 27.9 % (11.5-14.5); WHITE BLOOD COUNT 5.1 10^3/uL (4.0-10.0)
[2017-09-21] MEDS: SUCRALFATE SUSP 1GM/10ML UD PO ×2 (05:42→12:36)
[2017-09-21] MEDS: SLF 3 ML SYR IV (05:43)
[2017-09-21 05:55] LABS: HEMATOCRIT 26.3 % (42.0-52.0); HEMOGLOBIN 8.3 g/dl (14.0-18.0); MEAN CORPUSCULAR HEMOGLOBIN 32.5 pg (27.0-33.0); MEAN CORPUSCULAR HGB CONC 31.6 g/dl (32.0-36.5); MEAN CORPUSCULAR VOLUME 103.1 fl (80.0-96.0); PLATELET COUNT, AUTOMATED 190 10^3/uL (150-450); RED BLOOD COUNT 2.55 10^6/uL (4.30-6.10); RED CELL DISTRIBUTION WIDTH 27.6 % (11.5-14.5); WHITE BLOOD COUNT 4.9 10^3/uL (4.0-10.0)
[2017-09-21 06:09] LABS: ALBUMIN 3.1 GM/DL (3.2-5.2); ALBUMIN/GLOBULIN RATIO 0.79 (1.00-1.93); ALKALINE PHOSPHATASE 51 U/L (45-117); ALT/SGPT 46 U/L (12-78); ANION GAP 7 MEQ/L (8-16); AST/SGOT 26 U/L (7-37); BILIRUBIN,TOTAL 1.8 MG/DL (0.2-1.0); BLOOD UREA NITROGEN 14 MG/DL (7-18); CALCIUM LEVEL 8.4 MG/DL (8.8-10.2); CARBON DIOXIDE LEVEL 26 MEQ/L (21-32); CHLORIDE LEVEL 109 MEQ/L (98-107); CREATININE FOR GFR 0.82 MG/DL (0.70-1.30); GLOMERULAR FILTRATION RATE > 60.0 (>49); GLUCOSE, FASTING 98 MG/DL (70-100); MAGNESIUM LEVEL 2.2 MG/DL (1.8-2.4); SODIUM LEVEL 142 MEQ/L (136-145)
[2017-09-21] MEDS: PANTOPRAZOLE 40MG INJ (PROTONIX) (C9113) IV (09:32)
[2017-09-23 08:06] LABS: VITAMIN B6,PYRIDOXAL PHOSPHATE 2.9 ug/L (5.3-46.7)
[2017-09-23 08:06] LABS: VITAMIN B1 LEVEL WHOLE BLOOD 85.5 nmol/L (66.5-200.0)
== END 2017-09-21 14:20 | disposition home or self-care (01) | DRG 241 ==
LOC: M PCU 21:58 → M ED 15:52 → M ED INP 21:58
PROC: 30233N1 Transfusion of Nonautologous Red Blood Cells into Peripheral Vein, Percutaneous Approach (ICD-10-PCS; principal; 2017-09-19)
DX: K29.71 Gastritis, unspecified, with bleeding (principal); D62 Acute posthemorrhagic anemia; F10.21 Alcohol dependence, in remission; J30.9 Allergic rhinitis, unspecified; Z79.82 Long term (current) use of aspirin; Z79.899 Other long term (current) drug therapy; Z87.891 Personal history of nicotine dependence; K26.9 Duodenal ulcer, unspecified as acute or chronic, without hemorrhage or perforation